=== PATIENT | female | born 1980 | race African-American/Black ===

== ENCOUNTER 2018-06-23 00:15 | Emergency (ER) | payer BC, OTHER ==
[~2018-06-23] VITALS: Ht 154.9 cm; Wt 54.4 kg
[~2018-06-23 00:15] MED LIST: BALZIVA1 EACH; NORCO 5-325 TA1 EACH PO; NORFLEX100 MG PO
[2018-06-23 02:10] VITALS: BP 124/61
== END 2018-06-23 02:10 | disposition home or self-care (01) ==
LOC: ER 00:15
DX: J32.9 Chronic sinusitis, unspecified (principal); Z88.0 Allergy status to penicillin; Z88.2 Allergy status to sulfonamides

== ENCOUNTER 2019-04-26 17:28 | Emergency (ER) | payer BC, OTHER ==
[~2019-04-26] VITALS: Ht 154.9 cm; Wt 53.5 kg
[2019-04-26 18:16] LABS: ABSOLUTE NEUTROPHILS 6.1 thou/uL (1.4-8.2); BASOPHILS 1.3 % (0.0-2.0); EOSINOPHILS 1.4 % (0.0-3.0); HEMATOCRIT 42.5 % (37.0-47.0); HEMOGLOBIN 14.1 gm/dL (12.0-15.0); LYMPHOCYTES 19.9 % (24.0-44.0); MCH 30.6 pg (26.0-34.0); MCHC 33.3 g/dL (28.0-37.0); MCV 91.8 fL (80.0-100.0); MONOCYTES 5.8 % (1.0-8.0); PLATELET COUNT 295 thou/uL (150-400); POLYS 71.6 % (36.0-66.0); RBC 4.63 mil/uL (4.20-5.00); RDW 14.6 % (10.5-14.5); WBC 8.6 thou/uL (4.0-11.0)
[2019-04-26 18:29] LABS: CALCIUM 9.7 mg/dL (8.5-10.1); CREATININE 0.8 mg/dL (0.6-1.0); POTASSIUM 3.8 mmol/L (3.5-5.1)
[2019-04-26 18:32] LABS: URINE BILIRUBIN NEGATIVE (Negative); URINE BLOOD TRACE (Negative); URINE CLARITY CLEAR; URINE COLOR YELLOW; URINE GLUCOSE-RANDOM* NEGATIVE (Negative); URINE KETONES NEGATIVE (Negative); URINE LEUKOCYTES-REFLEX NEGATIVE (Negative); URINE NITRITE-REFLEX NEGATIVE (Negative); URINE PROTEIN (DIPSTICK) NEGATIVE (Negative); URINE SPECIFIC GRAVITY 1.025 (1.005-1.035); URINE UROBILINOGEN 0.2 E.U./dl (0.2-1.0)
[2019-04-26 18:34] LABS: ALBUMIN 4.3 g/dL (3.4-5.0); TOTAL BILIRUBIN 1.1 mg/dL (<0.1-1.0); TOTAL PROTEIN 8.8 g/dL (6.4-8.2)
[2019-04-26] MEDS ORDERED: NORCO 5-325 TA1 EAC1 PO (20:26)
[2019-04-26 20:47] VITALS: BP 116/76
== END 2019-04-26 20:48 | disposition home or self-care (01) ==
LOC: ER 17:28
PROVIDERS: Physician Assistant
DX: D25.9 Leiomyoma of uterus, unspecified (principal)

== ENCOUNTER 2020-06-25 20:29 | Emergency (ER) | payer BC, OTHER ==
[~2020-06-25] VITALS: Ht 154.9 cm; Wt 56.2 kg
[~2020-06-25 20:29] MED LIST changes: +NORCO 5-325 TA1 EAC1 PO
[2020-06-25] MEDS ORDERED: AZELASTINE137 MCG/0. SPRAY (20:49)
[2020-06-25] MEDS ORDERED: AZELASTINE137 MCG/0. NASAL (20:52)
[2020-06-25] MEDS ORDERED: DOXYCYCLINE 10100 MG PO (21:03)
[2020-06-25 21:12] VITALS: BP 114/73
== END 2020-06-25 21:31 | disposition home or self-care (01) ==
LOC: ER 20:29
DX: S61.432A Puncture wound without foreign body of left hand, initial encounter (principal); Z88.0 Allergy status to penicillin; Z88.2 Allergy status to sulfonamides; Z79.899 Other long term (current) drug therapy; W54.0XXA Bitten by dog, initial encounter; Y93.89 Activity, other specified; Y92.89 Other specified places as the place of occurrence of the external cause; Y99.9 Unspecified external cause status